=== PATIENT | female | born 1990 | race African-American/Black ===

== ENCOUNTER 2018-09-28 06:54 | Observation (INO) ==
[2018-09-28] MEDS ORDERED: Sodium Chlor 0.9% Inj 500 ML IV.CONT ONE (08:15)
[2018-09-28] MEDS ORDERED: Metoprolol Tartrate 25 MG Tablet PO ONE (08:15)
[2018-09-28] MEDS ORDERED: Chlorhexidine 4% Topical 120 APPLIC/120 ML Bottle TOPICAL SCH (08:15)
[2018-09-28] MEDS ORDERED: Chlorhexidine Gluconate 2% 1 Pack (2 Cloths) TOPICAL ONE (08:15)
[2018-09-28] MEDS ORDERED: Vancomycin Inj 1,000 MG in Sodium Chlor 0.9% Inj 250 ML IV.SIG SCH (09:00)
[2018-09-28] MEDS ORDERED: ceFAZolin 2 GM Premix Inj 2 GM/50 ML PIGGYBACK IV.SIG SCH (09:00)
[2018-09-28] MEDS ORDERED: Acetaminophen 160 MG/5 ML Liq 5 ML UDC PO ONE (10:00)
[2018-09-28] MEDS ORDERED: Neostigmine Inj 5 MG/5 ML Syringe IV.PUSH ONE (10:44)
[2018-09-28] MEDS ORDERED: Glycopyrrolate Inj 1 MG/5 ML Syringe IV.PUSH ONE (10:44)
[2018-09-28] MEDS ORDERED: Lidocaine PF 1% Inj 5 ML Syringe INFILTRATN ONE (10:44)
[2018-09-28] MEDS ORDERED: Esmolol Bolus Inj 100 MG/10 ML Vial IV.PUSH ONE (10:44)
[2018-09-28] MEDS ORDERED: Morphine Inj 4 MG/ML Vial IV.PUSH PRN (12:20)
[2018-09-28] MEDS ORDERED: Post-op Orders (for Pharmacy) OTHER STA (12:20)
--- NOTE | 2018-09-28 12:27 | P.OP ---
- Preoperative Diagnosis (1) Closed right humeral fracture Date of procedure: 09/28/18 Procedure: Open reduction internal fixation right humerus shaft fracture Anesthesia: GETA Surgeon: Giorgi Barron MD Cylinder Die Machine Helper: ARIELLE Joe PA-C The surgical procedure was assisted by my physician nursing assistants teacher. My P.A. presence was necessary throughout this case for the manipulation and positioning of the surgical extremity. My P.A. was assisting me throughout the duration of this procedure. The skill set of a physician nursing assistants teacher was medically necessary to complete this procedure. During the surgical case the surgical supplies sterilizer was working at the back table and the physician nursing assistants teacher was directly assisting me. Operation and Findings: Implants used: Synthes Details of procedure: Patient was seen and evaluated preoperatively. Treatment options were discussed regarding humerus fracture including surgical and nonsurgical treatments. After detailed discussion of risk and benefits of procedure patient wishes to proceed with surgery. Risks of surgery include bleeding, infection, nonunion, malunion, painful hardware, loss of motion of shoulder and elbow, weakness and numbness of arm, as well as medical competitions including blood clots stroke and . Patient was brought to operating room and placed on the OR table. GETA was administered by anesthesiologist. Patient was positioned in lateral decubitus position. Extremities were well-padded. Axillary roll was placed. Operative arm and shoulder were prepped with alcohol followed by Hibiclens and draped usual sterile fashion. Timeout procedure was performed. IV antibiotics were given prior to incision. A standard posterior approach was utilized. Subcutaneous tissues was dissected with Bovie. The triceps muscle was split midline. The radial nerve was identified and protected throughout the procedure. The nerve was intact. The fracture was identified. Soft tissue was removed from the fracture site. Fracture site was cleaned with curettes. At this point the fracture was reduced using fracture tenaculums. Multiplanar fluoroscopy confirmed excellent of fracture. A Synthes 3.5 plate was contoured to fit the humerus. Plate was provisionally held the bone with K wires. 3.5 cortical screws were placed on each side of the fracture. The screws were placed to add compression to fracture. Multiple screws were placed in each side of the fracture. All screws were predrilled and premeasured for appropriate length. Final fluoroscopy revealed excellent alignment of fracture with well-placed hardware. Incision was thoroughly irrigated. Fascia was closed with #1 Vicryl, subcutaneous tissues closed with 3-0 Vicryl, and skin was closed with garrett. Sterile dressings were applied. Needle and sponge counts were correct. Patient was placed into a sling, and then transferred to recovery room in stable condition
[2018-09-28] MEDS ORDERED: fentaNYL Citrate Inj 100 MCG/2 ML Ampul ONE ×2 (12:57)
[2018-09-28] MEDS ORDERED: ceFAZolin Inj 2,000 MG in Sodium Chlor 0.9% Inj 80 ML IV.SIG SCH (13:00)
[2018-09-28] MEDS ORDERED: *morphine SULFATE 4 MG/ML PERIprocedure ONLY ONE (13:13)
[2018-09-28] MEDS: guanFACINE 1 MG 24HR ER Tablet PO SCH ×2 (14:05→17:22)
[2018-09-28] MEDS: Calcium/Vitamin D 250/125 MG Tablet PO SCH ×2 (14:06→17:22)
--- NOTE | 2018-09-28 19:42 | XR ---
EXAM DATE: 09/28/2018 7:38 PM EST AGE/SEX: 28 years / Female INDICATIONS: Right humerus ORIF. CLINICAL DATA: This is the patient's initial encounter. Patient reports that signs and symptoms have been present for 1 day and indicates a pain score of Nonresponsive. MEDICAL/SURGICAL HISTORY: Non-responsive. Non-responsive. COMPARISON: No prior exams available for comparison. FINDINGS: 6 images from the OR have been submitted. There is a plate seen along the humerus. This appears well placed. It is secured by multiple screws. The elbow joint appears aligned. The glenohumeral joint is not included on any of the images. CONCLUSION: Good placement of a surgical plate at the right humerus for ORIF. Electronically signed by: Keyon Ryan MD Board Certified Radiologist 09/28/2018 7:40 PM EST
[2018-09-28] MEDS: ceFAZolin 2 GM Premix Inj 2 GM/50 ML PIGGYBACK IV.SIG SCH (21:03)
[2018-09-28] MEDS: Senna/Docusate Sodium 8.6/50 MG Tablet PO SCH (21:03)
[2018-09-28] MEDS: carBAMazepine 200 MG Tablet PO SCH (21:03)
[2018-09-29] MEDS: ceFAZolin 2 GM Premix Inj 2 GM/50 ML PIGGYBACK IV.SIG SCH ×2 (04:02→12:10)
--- NOTE | 2018-09-29 06:51 | P.PNOP ---
Subjective Interval history: POD 1 s/p ORIF right humerus awake in bed. caregiver states that she hasn't slept all night. Physical Exam Vital signs: Vital Signs 09/28/18 08:54 09/28/18 12:47 09/28/18 13:00 Temperature 97.5 F L 97.4 F L Pulse Rate 95 H 109 H 92 H Respiratory Rate 16 20 28 H Blood Pressure 137/99 H 136/92 H 206/107 H Pulse Oximetry 98 91 L 92 L 09/28/18 13:10 09/28/18 13:15 09/28/18 13:30 Temperature Pulse Rate 69 71 62 Respiratory Rate 22 20 22 Blood Pressure 180/84 H 166/79 H 165/79 H Pulse Oximetry 90 L 95 96 09/28/18 13:45 09/28/18 14:00 09/28/18 14:45 Temperature 97.4 F L 97.6 F Pulse Rate 74 Respiratory Rate 26 H 20 Blood Pressure 169/85 H Pulse Oximetry 95 95 96 09/28/18 15:10 09/28/18 19:04 09/28/18 23:07 Temperature 97.3 F L 98.0 F 98.3 F Pulse Rate 72 90 95 H Respiratory Rate 20 17 18 Blood Pressure 178/106 H 129/81 149/76 H Pulse Oximetry 96 97 98 09/29/18 01:00 09/29/18 03:01 Temperature 98.6 F Pulse Rate 72 Respiratory Rate 16 17 Blood Pressure 139/79 Pulse Oximetry 98 Intake & Output 09/28/18 09/28/18 09/29/18 06:59 18:59 06:59 Intake Total 1513 / 1513 50 / 50 Output Total 100 / 100 Balance 1413 / 1413 50 / 50 Weight 94.5 kg 93.4 kg Intake: IV 650 / 650 50 / 50 LR 1000 mL Inj 1,000 ML @ 30 400 / 400 mls/hr IV.CONT .Q24H [facility] Rx#: [id number] Vancomycin Inj 1,000 MG In NS 250 / 250 Inj 250 ML @ 250 mls/hr IV.SIG VP [employer] [facility] [facility] Rx#:[id number] Ancef 2 GM Premix Inj 2 gm In 50 / 50 50 ml @ 100 mls/hr IV.SIG Q8H [facility] Rx#:[id number] Oral 663 / 663 Anesthesia Amount 200 / 200 Output: Estimated Blood Loss 100 / 100 Other: # Voids 1 # Incontinent Voids 0 2 Date of Last Bowel Movement 09/26/18 Weight On Admission 94.6 kg Narrative: RUE: dressing clean and dry. intact. +sling Results - Labs Laboratory Results - last 24 hr 09/28/18 10:20 Beta HCG, Quant Less than 1 - Imaging Impressions Humerus X-Ray 09/28/18 00:00 CONCLUSION: Good placement of a surgical plate at the right humerus for ORIF. Assessment and Plan - Assessment and Plan 1) Right Humeral Shaft Fx s/p ORIF - POD 1 -NWB -maintain sling -maintain surgical dressing x 6 days. begin dressing changes every other day with primapore dressing on POD 7 -will see if nursing staff can provide dressings to child care provider for when goes back home -scripts on chart -f/u with Trisha or [facility] in 2 weeks -had long discussion with caregiver regarding care. informed her that dressing may stay in place for 7 days and then begin dressing changes every other day thereafter. [place] Prescription Drug Monitoring Database has been queried and verified prior to prescribing the controlled substance. Acute pain exception. This patient has normal, predicted, physiological, and time limited response to an adverse mechanical stimulus associated with surgery, trauma, or acute illness as described in my notes. There is a lack of alternative treatment options other than to include the prescribed narcotic treatment for this condition.
--- NOTE | 2018-09-29 06:58 | P.DS ---
Date of admission: 09/28/18 12:26 Primary care physician: Ms Irene Peñaloza Attending physician on discharge: Giorgi Rico Anticipated date of discharge: 09/29/18 Brief History from admission: Patient is seen in the office earlier this week for a right humerus fracture. She is previously broken in approximately 1 week prior after running in the [place] and suffering a fall. She is autistic and nonverbal it is always accompanied by caregiver. She lives in assisted home. DS: Diagnosis - Discharge Diagnosis (1) Closed right humeral fracture Status: Acute DS: Medications - Discharge Medications Prescriptions: hydrocodone-acetaminophen 1 tab PO Q4H PRN 7 Days tab PRN Reason: Acute Pain lorazepam 2 mg PO DAILY PRN 7 Days tab PRN Reason: Anxiety DS: Summary Hospital Course: Patient tolerated procedure well. She was admitted to [address] [place] [address] status. Her caregiver states that she did not sleep overnight. States she has been awakened him noticeable pain. States she has been grabbing at her arm due to the pain. States she has left a sling in the bandage alone. Caregiver was worried about dressing changes and orders with being discharged back to her facility. By postop day 1, she is out of bed with assistance. She is hemodynamically stable and will be fit for discharge back to her assisted living facility today. She will maintain her surgical dressing for 7 days. She will then begin dressing changes every other day with a Prim[place] dressing. We will have the nursing staff supply her with these dressings and the caregiver will be instructed on how to perform this. She will follow-up with Dr. Rico or his PA in 2 weeks. She will remain strictly nonweightbearing with the right arm. She will be given a prescription for hydrocodone 7 5 as well as lorazepam 2 mg to help with her agitation. - Time Spent with Patient Total time spent providing and/or coordinating discharge services: Less than 30 minutes - Quality: VTE Deep Vein Thrombosis/Pulmonary Embolism Present on Admission: No Exam Vital signs: Vital Signs 09/28/18 08:54 09/28/18 12:47 09/28/18 13:00 Temperature 97.5 F L 97.4 F L Pulse Rate 95 H 109 H 92 H Respiratory Rate 16 20 28 H Blood Pressure 137/99 H 136/92 H 206/107 H Pulse Oximetry 98 91 L 92 L 09/28/18 13:10 09/28/18 13:15 09/28/18 13:30 Temperature Pulse Rate 69 71 62 Respiratory Rate 22 20 22 Blood Pressure 180/84 H 166/79 H 165/79 H Pulse Oximetry 90 L 95 96 09/28/18 13:45 09/28/18 14:00 09/28/18 14:45 Temperature 97.4 F L 97.6 F Pulse Rate 74 Respiratory Rate 26 H 20 Blood Pressure 169/85 H Pulse Oximetry 95 95 96 09/28/18 15:10 09/28/18 19:04 09/28/18 23:07 Temperature 97.3 F L 98.0 F 98.3 F Pulse Rate 72 90 95 H Respiratory Rate 20 17 18 Blood Pressure 178/106 H 129/81 149/76 H Pulse Oximetry 96 97 98 09/29/18 01:00 09/29/18 03:01 Temperature 98.6 F Pulse Rate 72 Respiratory Rate 16 17 Blood Pressure 139/79 Pulse Oximetry 98 Intake & Output 09/28/18 09/28/18 09/29/18 06:59 18:59 06:59 Intake Total 1513 / 1513 50 / 50 Output Total 100 / 100 Balance 1413 / 1413 50 / 50 Weight 94.5 kg 93.4 kg Intake: IV 650 / 650 50 / 50 LR 1000 mL Inj 1,000 ML @ 30 400 / 400 mls/hr IV.CONT .Q24H [facility] Rx#: [id number] Vancomycin Inj 1,000 MG In NS 250 / 250 Inj 250 ML @ 250 mls/hr IV.SIG SALES TRAINING COORDINATOR [facility] Rx#:[id number] Ancef 2 GM Premix Inj 2 gm In 50 / 50 50 ml @ 100 mls/hr IV.SIG Q8H [facility] Rx#:[id number] Oral 663 / 663 Anesthesia Amount 200 / 200 Output: Estimated Blood Loss 100 / 100 Other: # Voids 1 # Incontinent Voids 0 2 Date of Last Bowel Movement 09/26/18 Weight On Admission 94.6 kg Narrative: RUE: dressing clean and dry. intact. +sling Results Procedures completed during hospitalization: ORIF of right humerus Labs on day of discharge: Labs from last 24 hours 09/28/18 10:20 Beta HCG, Quant Less than 1 - Impressions ITS Impressions Humerus X-Ray 09/28/18 00:00 CONCLUSION: Good placement of a surgical plate at the right humerus for ORIF. Discharge Plan - Discharge Disposition Patient Disposition: Discharge Home - Discharge Condition Condition: Good - Discharge Order Discharge Orders: Discharge Order (Routine); Ordered 09/29/18 Ordered By: Ritchie Santana - Physicians Team Attending Provider: Giorgi Rico - Rxs /Orders / Referrals /Forms Prescriptions: New hydrocodone-acetaminophen 7.5-325 mg Tablet 1 tab PO Q4H PRN (Reason: Acute Pain) 7 Days RF: 0 lorazepam 2 mg Tablet 2 mg PO DAILY PRN (Reason: Anxiety) 7 Days RF: 0 Continue carbamazepine (mood stabiliz) 200 mg Capsule, Er Multiphase 12 Hr 200 mg PO BID docusate sodium 100 mg Capsule 100 mg PO BID fluoxetine 20 mg Capsule 20 mg PO DAILY guanfacine 1 mg Tablet Extended Release 24 Hr 1 mg PO TID hydroxyzine HCl 50 mg Tablet 50 mg PO DAILY PRN (Reason: Anxiety) loratadine [Allergy Relief (loratadine)] 10 mg Tablet 10 mg PO DAILY lorazepam 2 mg Tablet 2 mg PO DAILY PRN (Reason: Anxiety) quetiapine 300 mg Tablet 300 mg PO BID Referrals: Ms Irene Peñaloza NP [Other] - See Instructions Giorgi Rico MD [Physician] - See Instructions (2 weeks)
[2018-09-29 08:46] VITALS: RESP 20
[2018-09-29] MEDS ORDERED: Loratadine 10 MG Tablet PO SCH (09:00)
[2018-09-29] MEDS ORDERED: FLUoxetine 20 MG Capsule PO SCH (09:00)
[2018-09-29] MEDS: Senna/Docusate Sodium 8.6/50 MG Tablet PO SCH (09:14)
[2018-09-29] MEDS: Calcium/Vitamin D 250/125 MG Tablet PO SCH (09:14)
[2018-09-29] MEDS: guanFACINE 1 MG 24HR ER Tablet PO SCH (09:14)
[2018-09-29] MEDS: carBAMazepine 200 MG Tablet PO SCH (09:14)
[2018-09-29 12:12] VITALS: BP 151/84; PULSE 110; TEMP 99; O2SAT 97
== END 2018-09-29 14:27 | disposition home or self-care (01) ==
LOC: HSDC 06:54 → HSDI 06:54 → N06 15:12
PROVIDERS: ADMIT Orthopaedic Surgery Orthopaedic Trauma; ATTEND Orthopaedic Surgery Orthopaedic Trauma
CPT/HCPCS: 73060; 76000; 84702; 96365; 96376; 97166; C1713; G0378; G8987; G8988; J0690; J1100; J1580; J2270; J2405; J2704; J2710; J3010; J3370; J7050; J7120